=== PATIENT | male | born 1960 | race Caucasian/White ===

== ENCOUNTER 2020-09-21 00:42 | Emergency (ER) | payer OTHER ==
--- OUTSIDE RECORDS SUMMARY | 2020-09-21 00:45 | XMS REPORT | Continuity of Care Document ---
:1960 Author Organization [facility] t Address [address] [place] [address] Care Team Providers Name Role Phone NGA Attending Clinician Unavailable MARVA Attending Clinician Unavailable LUIS Attending Clinician Unavailable Problems Condition Condition Condition Status Onset Resolution Last Treating Co mments Source Name Details Category Date Date Treatment Clinician Date Closed Closed Problem Active U nivers punch punch ity of fracture fracture [place] of distal of distal Phys ici end of end of ans left left radius radius with with routine routine healing healing Wrist Wrist Problem Active Univers pain, pain, ity of acute, acute, [place] left left Physici ans Essential Essential Problem Active Uni vers (primary) (primary) ity of hypertens[place] hypertens[place] Tobacco Tobacco Problem Active Univers use use ity of disorder disorder [place] Physici ans COPD COPD Problem Active Univers (chronic (chronic [place] of obstructiv obstructiv [place] Physici pulmonary pulmonary ans disease) disease) Allergies, Adverse Reactions, Alerts This patient has no known allergies or adverse reactions. Social History Smoking Status Start Date Stop Date Source Ex-smoker (finding) [place] [facility] Medications Ordered Filled Start Stop Current Ordering Indication Dosage Frequency Signature Comments Components Source Medication Medication Date Date Medication? Clinician (SIG) Name Name ProAir HFA ProAir HFA 2018- Yes ADOLAT INHALE 1-2 Univers 108 (90 108 (90 0-14 MIRZAEVA PUFFS ity of Base) Base) 00:00: EVERY 4-6 [place] MCG/ACT MCG/ACT 00 HOURS Physi ci Inhalation Inhalation NEEDED AND ans Aerosol Aerosol Solution Solution DIRECTED. Furosemide Furosemide Yes ADOLAT 1 QD TAKE 1 Univers 40 MG Oral 40 MG Oral 9-10 MIRZAEVA TABLET ity of Tablet Tablet 00:00: MD DAILY. [place] 00 Physici ans amLODIPine amLODIPine Yes ADOLAT TAKE 1 Univers Besylate 10 Besylate 10 9-10 MIRZAEVA TABLET BY ity of MG Oral MG Oral 00:00: MOUTH [place] Tablet Tablet 00 EVERY DAY Physic i ans Immunizations Ordered Filled Date Status Comments Source Immunization Name Immunization Name Fluzone 2018-11-26 [facility] [place] [facility] Intramuscular Suspension Prefilled Syringe Tdap (Adacel) Unknown Completed [facility] Physicia ns Vital Signs Vital Name Observation Time Observation Value Comments Source BP Systolic 2018-12-09 153 mm[Hg] Location: [facility] 09:04:00 Position: [place] Physician s Sitting BP Diastolic 2018-12-09 90 mm[Hg] Location: [facility] 09:04:00 Position: [place] Physician s Sitting Heart Rate 2018-12-09 76 /min Location: [facility] 09:04:00 Brachial [place] Physician s Artery; Quality: Normal Height 2018-12-09 66 [in_us] [facility] 09:04:00 [place] Physician s Weight 2018-12-09 106.5 [lb_av] [facility] 09:04:00 [place] Physician s Body Mass Index 2018-12-09 17.19 kg/m2 University o f Calculated 09:04:00 [place] Physician s Temperature 2018-12-09 97.7 [degF] Method: Oral [facility] 09:04:00 [place] Physician s Respiration Rate 2018-12-09 14 /min Quality: Normal Universi ty of 09:04:00 [place] Physician s BP Systolic 2018-11-05 154 mm[Hg] University of 15:37:00 [place] Physician s BP Diastolic 2018-11-05 105 mm[Hg] [facility] 15:37:00 [place] Phys[facility] s Heart Rate 2018-11-05 98 /min University 15:37:00 [place] Physician s Height 2018-11-05 66 [in_us] [place] [facility] 15:37:00 [place] Physician s Weight 2018-11-05 109.375 [lb_av] University o f 15:37:00 [place] Physician s Body Mass Index 2018-11-05 17.65 kg/m2 University o f Calculated 15:37:00 [place] Physician s Temperature 2018-11-05 98 [degF] Method: Oral University 15:37:00 [place] Physician s Respiration Rate 2018-11-05 14 /min University 15:37:00 [place] [facility] s Procedures Procedure Date / Time Performed Performing Clinician Sourc e [U] XRAY WRIST MIN 3 2018-12-18 00:00:00 Univers y [facility] VWS LEFT [id number] Physicians [U] XRAY WRIST MIN 3 2018-11-27 00:00:00 [facility] [id number] Post Op Promis 29 2018-11-20 00:00:00 [facility] Survey Physicians [U] XRAY WRIST MIN 3 2018-11-13 00:00:00 Univers [facility] [place] LEFT [id number] Physicians Plan of Care Planned Activity Planned Date Details Comments Source Diagnostic Test 2018-11-28 [U] XRAY WRIST [facility] Pending 00:00:00 MIN 3 [facility] LEFT Physicians [id number] [code = 00131] Encounters Start End Encounter Admission Attending Care Care Encounter Source Date/Time Date/Time Type Type Clinicians Facility Department ID 2019-03-24 Outpatient [facility] PUL [id number] [facility] 12:29:19 2019-01-30 2019-01-30 NATALI Mason UTP [id number] Univers 09:45:00 09:45:00 t; Abilio FRANKEL ity of [facility] Birgit FRANKEL M.D. Physi ans 2018-12-31 2018-12-31 Outpatient [facility] PUL [id number] [facility] 15:11:00 15:11:00 2018-12-19 2018-12-19 NTAALI Mason Orthopedics [id number] Univers 09:45:00 09:45:00 t; Abilio FRANKEL Trauma ity [facility] Birgit FRANKEL M.D. [place] [facility] Medical ans [place] 2018-12-12 2018-12-12 Outpatient [facility] CAR [id number] MH 09:14:00 09:14:00 2018-12-09 2018-12-09 NATALI Swain Family [id number] Univers 09:00:00 09:00:00 t; [facility] 2018-12-09 2018-12-09 Outpatient [facility] PUL [id number] [facility] 06:59:00 06:59:00 2018-11-28 2018-11-28 Appointmen NGA [facility] Orthopedics [id number] Univers 10:30:00 10:30:00 t; Abilio FRANKEL at [facility] Abilio FRANKEL Medicine Phys [facility] 2018-11-19 2018-11-19 Outpatient [facility] PUL [id number] [facility] 12:24:00 12:24:00 2018-11-14 2018-11-14 Appointtonya SYLVESTER [facility] Orthopedics [id number] Univers 10:45:00 10:45:00 t; Abilio FRANKEL at [facility] Abilio FRANKEL Medicine [facility] 2018-11-06 2018-11-06 Appointmen NGA [facility] [id number] Univers 08:00:00 08:00:00 t; Abilio FRANKEL [place], [place] Abilio FRANKEL [facility] 2018-11-06 2018-11-06 [id number] 06:20:00 06:20:00 2018-11-05 2018-11-05 [facility] [id number] Univers 15:30:00 15:30:00 t; Abilio SMITH Medicine - i ty of Abilio TOTH [facility] Physici [facility] 2018-10-29 2018-10-29 Appointmen NGA [facility] Orthopedics [id number] Univers 09:00:00 09:00:00 t; Abilio FRANKEL Trauma [facility] Birgit FRANKEL M.D. [facility] 2018-10-16 2018-10-16 Inpatient E [facility] MED [id number] [facility] 07:39:00 02:45:00 Results Test Description Test Time Test Comments Results Result Sour e Comments [U] XRAY WRIST 2018-12-19 Images [facility] 3 VWS LEFT 10:01:00 acquired, not [place] [id number] reported on Physicians this accession number. [[facility]] MICROALBUMIN, RANDOM URINE (W/CREATININE) 2018-12-09 0 9:50:01 Test Item Value Reference Range Interpretation Comme nts Urine Microalbumin (test code = <5.0 No established reference range. Urine Microalbumin) U Creatinine (test code = 2161-8) 26.40 mg/dl No established reference range. Urine Microalbuming Creatinine See Note <=30.0 Calculated values are not Ratio (test code = 85745-9) available, when measured parameters are not withinthe instruments rep ortable limits -- [facility] Physicians[[facility]] HEMOGLOBIN [id number] 09:50:01 Test Item Value Reference Range Interpretation Comments Hemoglobin A1c (test code = 4548-4) 5.5 % <=5.6 [facility] Physicians[[facility]] CBC (INCLUDES DIFF/PLT)2018-12-09 09:50:01 Test Item Value Reference Range Interpretation Comments WBC (test code = 6690-2) 8.1 {K/CMM} 3.7-10.4 RBC; Below Low Threshold (test 4.41 {M/CMM} 4.70-6.10 code = 789-8) Hgb (test code = 718-7) 14.4 g/dl 14.0-18.0 Hct (test code = 41317-6) 42.9 % 42.0-54.0 MCV; Above High Threshold (test 97.3 fL 80.0-94.0 code = 787-2) MCH; Above High Threshold (test 32.6 pg 27.0-31.0 code = 785-6) MCHC (test code = 786-4) 33.5 g/dl 32.0-36.0 RDW (test code = 788-0) 13.6 % 11.5-14.5 Platelet (test code = 16143-6) 398 {K/CMM} 133-450 Mean Platelet Volume (test code 8.6 fL 7.4-10.4 = 88720-5) [facility] Physicians[[facility]] CMP [id number] 09:50:01 Test Item Value Reference Range Interpretation Comments Sodium Level 138 {mEq/l} 135-145 (test code = 2951-2) Potassium Level 3.8 {mEq/l} 3.5-5.1 (test code = 2823-3) Chloride Level 101 {mEq/l} 95-109 (test code = 2075-0) Carbon Dioxide 29 {mEq/l} 24-32 (test code = 2027-9) AGAP (test code = 11.8 {mEq/l} 10.0-20.0 93876-1) Glucose Lvl (test 78 mg/dl 70-99 Adult refe rence range code = 2345-7) values reflec t the clinical guidel inesof the [place] Diabet es Association. Creatinine Lvl 0.70 mg/dl 0.50-1.40 (test code = 2160-0) Blood Urea 6 mg/dl 7-22 Nitrogen; Below Low Threshold (test code = 3094-0) BUN/Creatinine 9 6-25 Ratio (test code = 3097-3) Total Protein; 8.8 g/dl 6.4-8.4 Above High Threshold (test code = 2885-2) Albumin Lvl (test 4.1 g/dl 3.5-5.0 code = 1751-7) Globulin; Above 4.7 g/dl 2.7-4.2 High Threshold (test code = 46158-1) A/G Ratio (test 0.9 0.7-1.6 code = 1759-0) Calcium Level 9.4 mg/dl 8.5-10.5 Total (test code = 29890-7) ALT (test code = 28 u/l 0-65 1743-4) AST (test code = 21 u/l 0-37 72286-8) Alk Phos; Above 138 u/l 39-136 The pediatri c reference High Threshold ranges for th is test (test code = represent a 1783-0) CLSI-basedtrans ference of the CALIPER ashly abase of pediatric refer ence intervals to th eSiemens Clearwater analyzer (Clinical Biochemistry 46 (2013): 0977-3602). [facility] [employer] [facility] has not internally validated these reference ranges and therefore they should be used only in th e context of a thoroughcl inical assessment. Bili Total (test 0.4 mg/dl 0.2-1.3 code = 1974-) eGFR (test code = 103 The eGFR i s calculated 02192-7) {ML/MIN/1.7} using the CKD-E PI formula. In mos t young, healthyindividu als the eGFR will be >9 0 mL/min/1.73m2. The eGFR declines with a ge. AneGFR of 60-89 may be normal in some population s, particularly th e elderly, forwhom the CKD -EPI formula has not been extensively [place] idated. Use of the eGFR isnot recommended in the following populations:Ind ividuals with unstable c reatinine concentrations, including patient s and those with seri ous co-morbid conditions.Sarita ents with extremes in mus forest mass or diet.The ashly a above are obtained fr om the National Kidney Disease Education Progr am(NKDEP) which leydi coyne recommends that when the eGFR is used in patientswith ex tremes of body mass index for purposes of renetta g dosing, the eGFR should be multiplied by t he estimated BMI. [facility] Physicians[[facility]] LIPID [id number] 09:50:01 Test Item Value Reference Range Interpretation Comments Chol; Above High Threshold (test 224 mg/dl <=199 code = 2093-3) Trig (test code = 2571-8) 129 mg/dl <=149 HDL Cholesterol; Below Low 58 mg/dl >=61 Threshold (test code = 2085-9) CHD Risk; Below Low Threshold (test 3.86 4.00-7.30 code = 76051-0) LDL; Above High Threshold (test 140 mg/dl <=99 code = 52807-2) VLDL (test code = VLDL) 26 [facility] Physicians[[facility]] [id number] 09:50:01 Test Item Value Reference Range Interpretation Comments Segmented Neutrophils (test code 52.4 % 45.0-75.0 = 75043-8) Monocytes (test code = 48235-3) 7.6 % 2.0-12.0 Lymphocytes (test code = 12798-7) 37.3 % 20.0-40.0 Eosinophils (test code = 84193-8) 1.8 % 0.0-4.0 Basophils (test code = 706-2) 0.9 % 0.0-1.0 Segs-Bands # (test code = 4.2 {K/CMM} 1.5-8.1 04026-3) Lymphocytes # (test code = 3.0 {K/CMM} 1.0-5.5 44465-8) Monocytes # (test code = 87704-1) 0.6 {K/CMM} 0.0-0.8 Eosinophils # (test code = 0.1 {K/CMM} 0.0-0.5 99655-8) Basophils # (test code = 99353-6) 0.1 {K/CMM} 0.0-0.2 RBC Morphology (test code = RBC Normal Normal Morphology) Large Platelet (test code = Large Moderate None Seen A Platelet) [facility] Physicians[U] XRAY WRIST MIN 3 VWS LEFT [id number] 10:24:00Images acquired, not reported on this accession number.[facility] Physicians[U] XRAY WRIST MIN 3 VWS LEFT [id number] 11:06:00Images acquired, not reported on this accession number.[facility] Physicians [U] XRAY WRIST MIN 3 VWS LEFT [id number] 09:06:00Images acquired, not reported on this accession number.[facility]
--- NOTE | 2020-09-21 17:51 | ER ---
Nurse's Notes [facility] Name: Radhames Pérez Age: 59 yrs Sex: Male : 1960 Arrival Date: 09/21/2020 Time: 00:47 Bed External Waiting Private MD: Diagnosis: Presentation: 09/21 01:39 Chief complaint: Patient states: toes on the left foot have been turning black for 10 em days, denies fever, reports shortness of breath due to COPD but nothing more than normal. Coronavirus screen: Client denies travel out of the [place] in the last 14 days. Ebola Screen: Patient negative for fever greater than or equal to 101.5 degrees Fahrenheit, and additional compatible Ebola Virus Disease symptoms Patient denies exposure to infectious person. Patient denies travel to an Ebola-affected area in the 21 days before illness onset. No symptoms or risks identified at this time. Initial Sepsis Screen: Does the patient meet any 2 criteria? No. Patient's initial sepsis screen is negative. Does the patient have a suspected source of infection? No. Patient's initial sepsis screen is negative. Risk Assessment: Do you want to hurt yourself or someone else? Patient reports no desire to harm self or others. Onset of symptoms was September 21, 2020. 01:39 Method Of Arrival: Wheelchair em 01:39 Acuity: OMARI 3 em Historical: - Allergies: 01:42 No Known Allergies; em - PMHx: 01:42 COPD; "pulmonary issues"; em - PSHx: 01:42 left wrist; em - Immunization history:: Adult Immunizations not up to date. - Social history:: Smoking status: Patient reports the use of cigarette tobacco products, denies chronic smoking, but will smoke occasionally. Vital Signs: 01:39 BP 176 / 99; Pulse 107; Resp 20; Temp 98.0; Pulse Ox 99% on R/A; Pain 10/10; em ED Course: 00:47 Patient arrived in ED. cf2 01:42 Triage completed. em 01:42 Arm band placed on. em Administered Medications: No medications were administered Outcome: 02:41 Patient left the ED. em Signatures: Michi Shah RN RN em Isha Lorenz cf2
[2020-09-22 17:43] VITALS: BP 176/99; TEMP 98; O2SAT 99
== END 2020-09-21 02:41 | disposition left against medical advice (07) ==
LOC: ER 00:42
DX: R23.8 Other skin changes (principal); J44.9 Chronic obstructive pulmonary disease, unspecified; F17.210 Nicotine dependence, cigarettes, uncomplicated; Z53.21 Procedure and treatment not carried out due to patient leaving prior to being seen by health care provider